=== PATIENT | female | born 1935 | race Caucasian/White ===

== ENCOUNTER 2023-03-22 04:16 | Inpatient (IN) | payer MEDICARE, SELFPAY ==
[2023-03-22 05:33] LABS: Hematocrit 25.7 % (36.0-47.0); Hemoglobin 8.1 g/dL (12.0-16.0); Mean Corpuscular HGB CONC 31.5 g/dL (32.0-36.0); Mean Corpuscular Hemoglobin 32.3 pg (27.0-31.0); Mean Corpuscular Volume 102.4 fl (78.0-98.0); Mean Platelet Volume 9.8 fL (7.4-10.4); Platelet Count 140 10x3/uL (130-400); RBC Distribution Width 17.6 % (11.5-14.5); Red Blood Cell (RBC) Count 2.51 mill/uL (4.20-5.40); White Blood Cell (WBC) Count 1.3 10x3/uL (4.8-10.8)
[2023-03-22 05:49] LABS: Delete Auto Diff?? YES; Manual Diff?? YES
[2023-03-22 05:54] LABS: ALT (SGPT) 15 U/L (8-55); AST (SGOT) 24 U/L (5-34); Albumin 3.3 g/dL (3.4-4.8); Alkaline Phosphatase 103 U/L (40-110); Anion Gap 15 mmol/L (10-20); BUN (Urea Nitrogen) 24 mg/dL (9.8-20.1); Bilirubin, Total 0.6 mg/dL (0.2-1.2); CK (CPK) 91 U/L (29-168); Calc. Creatinine Clearance 0 mL/min (70-130); Carbon Dioxide 21 mmol/L (23-31); Chloride 102 mmol/L (98-107); Estimated GFR 37; Globulin 2.7 g/dL (2.4-3.5); Glucose 82 mg/dL (83-110); Potassium 3.7 mmol/L (3.5-5.1); Sodium 134 mmol/L (136-145)
[2023-03-22 05:58] LABS: Troponin I 0.015 ng/mL (< 0.028)
[2023-03-22 06:21] LABS: Band 30 % (5-11); CellaVision Operator ID lab.abc; Large Platelets 5.9 % (0-5); Lymphocytes 7 % (21-51); Macrocytosis SLIGHT = 6-15 cells HPF (0-5); Monocytes 4 % (0-10); Neutrophil 59 % (42-75); Platelet Adequacy Comment Platelets Normal; Polychromasia SLIGHT = 2-3 cells HPF (0-2); Smudge Cells 7.8 %; Total Cell Count 102
[2023-03-22] MEDS ORDERED: Cefepime 2 GM VIAL ONE (09:50)
[2023-03-22] MEDS ORDERED: Vancomycin 1 GM/200 ML (FROZEN) BAG ONE (09:50)
[2023-03-22] MEDS ORDERED: LevoFLOXacin 750 mg/D5W 150 ml Premix Bag ONE (09:50)
[2023-03-22] MEDS ORDERED: Communication Order-Pharmacy FS SCH (11:51)
[2023-03-22] MEDS ORDERED: Dextrose 5% in Water 1,000 ML IV PRN (11:54)
[2023-03-22] MEDS ORDERED: Glucagon 1 MG/ML KIT IM PRN (11:54)
[2023-03-22] MEDS ORDERED: HumaLOG 300 UNITS/3 ML VIAL SC PRN ×2 (11:54)
[2023-03-22] MEDS ORDERED: Dextrose 50% Abboject 50 ML SYRINGE SLOW IVP PRN (11:54)
[2023-03-22] MEDS ORDERED: D5 1/2 NS w/20 mEq KCL 1,000 ML IV SCH (12:00)
[2023-03-22 13:08] LABS: Magnesium 1.3 mg/dL (1.6-2.6)
[2023-03-22] MEDS ORDERED: Gabapentin 300 MG CAP PO PRN (13:09)
[2023-03-22 14:14] LABS: Bilirubin Negative (Negative); Blood, Urine Negative (Negative); CAUTI Indications for Culture Alt mental st,lethar; Glucose, Urine (Dipstick) Normal (Negative); Ketone, Urine Negative (Negative); Leukocyte 500 Leu/uL (Negative); Nitrite 1+ (Negative); Protein, Urine (Dipstick) 50 mg/dL (Neg-Trace); RBC/HPF 0-3 HPF (0-3); Squamous Epithelial 0-3 HPF (0-3); Urobilinogen Normal mg/dL (Less than 2); WBC/HPF 21-50 HPF (0-3)
[2023-03-22 14:18] LABS: Bacteria/HPF 1+ HPF (None Seen); Clarity Hazy (Clear)
[2023-03-22 14:20] LABS: Urine Culture Reflex Yes Yes
[2023-03-22] MEDS ORDERED: Furosemide 40 MG/4 ML VIAL SLOW IVP SCH (14:45)
[2023-03-22] MEDS ORDERED: Metoprolol Tartrate 25 MG TAB PO SCH (15:00)
[2023-03-22] MEDS: Sucralfate 1 GM TAB PO SCH ×2 (20:14→23:39)
[2023-03-22] MEDS: Dextrose 5 %-0.45 % NaCl 1,000 ML IV SCH (20:14)
[2023-03-22] MEDS: Vancomycin HCl 125 MG Capsule PO SCH (20:14)
[2023-03-22 20:28] VITALS: BMI 36.6
[2023-03-22] MEDS ORDERED: Apixaban 2.5 MG TAB PO SCH (21:00)
[2023-03-22] MEDS ORDERED: Famotidine 20 MG TAB PO SCH (21:00)
[2023-03-22] MEDS: Cefepime 1 GM in Sodium Chloride 0.9% 100 ML IVPB SCH (23:26)
[2023-03-23] MEDS: Vancomycin HCl 125 MG Capsule PO SCH ×5 (00:45→23:11)
[2023-03-23 04:20] LABS: Strep pneumo Urine Ag NEGATIVE (NEGATIVE)
[2023-03-23 04:46] LABS: Hematocrit 18.8 % (36.0-47.0); Hemoglobin 6.1 g/dL (12.0-16.0); Mean Corpuscular HGB CONC 32.4 g/dL (32.0-36.0); Mean Corpuscular Hemoglobin 32.6 pg (27.0-31.0); Mean Corpuscular Volume 100.5 fl (78.0-98.0); Mean Platelet Volume 9.8 fL (7.4-10.4); Platelet Count 133 10x3/uL (130-400); RBC Distribution Width 17.7 % (11.5-14.5); Red Blood Cell (RBC) Count 1.87 mill/uL (4.20-5.40); White Blood Cell (WBC) Count 1.2 10x3/uL (4.8-10.8)
[2023-03-23 05:03] LABS: Delete Auto Diff?? YES; Manual Diff?? YES
[2023-03-23 05:18] LABS: ALT (SGPT) 15 U/L (8-55); AST (SGOT) 28 U/L (5-34); Albumin 2.5 g/dL (3.4-4.8); Alkaline Phosphatase 74 U/L (40-110); Anion Gap 12 mmol/L (10-20); BUN (Urea Nitrogen) 17 mg/dL (9.8-20.1); Bilirubin, Total 0.7 mg/dL (0.2-1.2); Calc. Creatinine Clearance 46 mL/min (70-130); Calcium 7.8 mg/dL (7.8-10.44); Carbon Dioxide 19 mmol/L (23-31); Chloride 102 mmol/L (98-107); Estimated GFR 42; Globulin 2.4 g/dL (2.4-3.5); Glucose 95 mg/dL (83-110); Magnesium 1.2 mg/dL (1.6-2.6); Phosphorus 2.8 mg/dL (2.3-4.7); Potassium 3.2 mmol/L (3.5-5.1); Protein, Total 4.9 g/dL (5.8-8.1); Sodium 130 mmol/L (136-145)
[2023-03-23] MEDS ORDERED: Electrolyte Replacement Protocol 1 EACH FS SCH (06:45)
[2023-03-23] MEDS ORDERED: Potassium Chloride 20 MEQ TAB PO SCH (06:45)
[2023-03-23] MEDS ORDERED: Pantoprazole 40 MG VIAL IVP SCH (06:45)
[2023-03-23] MEDS ORDERED: Magnesium Sulfate In Water 4 GM in Premix Bag 1 BAG IVPB SCH (06:45)
[2023-03-23 06:46] LABS: SARS-CoV-2 NAA Rapid Test DETECTED (NotDetected)
[2023-03-23] MEDS: Pantoprazole 40 MG VIAL IVP SCH (07:29)
[2023-03-23 08:16] LABS: Band 35 % (5-11); CellaVision Operator ID LAB.GE; Hypochromia SLIGHT = 6-15 cells HPF (0-5); Large Platelets 2.3 % (0-5); Lymphocytes 12 % (21-51); Monocytes 13 % (0-10); Neutrophil 40 % (42-75); Platelet Adequacy Comment Platelets Normal; Polychromasia SLIGHT = 2-3 cells HPF (0-2); Total Cell Count 87
[2023-03-23 08:30] LABS: Iron 16 ug/dL (50-170); Iron Binding Capacity, Total 168 mcg/dL (265-497)
[2023-03-23] MEDS ORDERED: Furosemide 40 MG/4 ML VIAL SLOW IVP SCH (09:00)
[2023-03-23] MEDS ORDERED: Vancomycin HCl 750 MG in Sodium Chloride 0.9% 250 ML 250 ML IVPB SCH (09:00)
[2023-03-23] MEDS: Cefepime 1 GM in Sodium Chloride 0.9% 100 ML IVPB SCH ×2 (09:45→20:54)
[2023-03-23] MEDS: Sucralfate 1 GM TAB PO SCH ×4 (09:46→20:54)
[2023-03-23] MEDS: Dextrose 5 %-0.45 % NaCl 1,000 ML IV SCH (12:14)
[2023-03-23 19:40] LABS: Hematocrit 25.5 % (36.0-47.0); Hemoglobin 8.6 g/dL (12.0-16.0)
[2023-03-23] MEDS: Famotidine 20 MG TAB PO SCH (20:54)
[2023-03-24] MEDS ORDERED: Melatonin 3 MG TAB PO PRN (01:27)
[2023-03-24] MEDS: Dextrose 5 %-0.45 % NaCl 1,000 ML IV SCH (01:40)
[2023-03-24 04:40] LABS: #Eosinphils 0.1 thou/uL (0.0-0.7); #Monocytes 0.2 thou/uL (0.11-0.59); #Neutrophils 1.3 thou/uL (1.40-6.50); %Basophils 0.5 % (0.0-1.0); %Eosinophils 5.4 % (0.0-10.0); %Lymphocytes 22.2 % (21.0-51.0); %Monocytes 7.4 % (0.0-10.0); %Neutrophils 63.5 % (42.0-75.0); Hematocrit 25.2 % (36.0-47.0); Hemoglobin 8.4 g/dL (12.0-16.0); Mean Corpuscular HGB CONC 33.3 g/dL (32.0-36.0); Mean Corpuscular Hemoglobin 31.6 pg (27.0-31.0); Mean Platelet Volume 9.5 fL (7.4-10.4); Platelet Count 123 10x3/uL (130-400); RBC Distribution Width 18.5 % (11.5-14.5); Red Blood Cell (RBC) Count 2.66 mill/uL (4.20-5.40)
[2023-03-24 04:41] LABS: Mean Corpuscular Volume 94.7 fl (78.0-98.0)
[2023-03-24 04:42] LABS: Manual Diff?? YES
[2023-03-24] MEDS: Vancomycin HCl 125 MG Capsule PO SCH ×3 (04:44→18:01)
[2023-03-24 05:06] LABS: ALT (SGPT) 17 U/L (8-55); AST (SGOT) 31 U/L (5-34); Albumin 2.6 g/dL (3.4-4.8); Alkaline Phosphatase 78 U/L (40-110); Anion Gap 10 mmol/L (10-20); BUN (Urea Nitrogen) 11 mg/dL (9.8-20.1); Bilirubin, Total 0.6 mg/dL (0.2-1.2); Calc. Creatinine Clearance 63 mL/min (70-130); Calcium 8.1 mg/dL (7.8-10.44); Carbon Dioxide 20 mmol/L (23-31); Chloride 105 mmol/L (98-107); Estimated GFR 62; Globulin 2.5 g/dL (2.4-3.5); Glucose 107 mg/dL (83-110); Potassium 3.4 mmol/L (3.5-5.1); Protein, Total 5.1 g/dL (5.8-8.1); Sodium 132 mmol/L (136-145)
[2023-03-24 05:27] LABS: Anisocytosis SLIGHT = 6-15 cells HPF (0-5); Band 9 % (5-11); Burr Cells SLIGHT = 2-5 cells HPF (0-1); CellaVision Operator ID lab.sh2; Eosinophils 4 % (0-10); Lymphocytes 13 % (21-51); Macrocytosis SLIGHT = 6-15 cells HPF (0-5); Monocytes 3 % (0-10); Neutrophil 71 % (42-75); Ovalocytes SLIGHT = 2-5 cells HPF (0-1); Platelet Adequacy Comment Platelets Decreased; Poikilocytosis SLIGHT = 6-15 cells HPF (0-5); Polychromasia SLIGHT = 2-3 cells HPF (0-2); Tear Drops SLIGHT = 2-5 cells HPF (0-1); Total Cell Count 100
[2023-03-24] MEDS ORDERED: Potassium Chloride 20 MEQ TAB PO SCH (08:00)
[2023-03-24] MEDS ORDERED: Magnesium 2 GM/50 ML(in water) 2 GM in Premix Bag 1 BAG IVPB SCH (08:00)
[2023-03-24] MEDS: Sucralfate 1 GM TAB PO SCH ×5 (08:48→21:04)
[2023-03-24] MEDS: Cefepime 1 GM in Sodium Chloride 0.9% 100 ML IVPB SCH ×2 (08:49→21:01)
[2023-03-24] MEDS: Pantoprazole 40 MG VIAL IVP SCH (08:49)
[2023-03-24] MEDS ORDERED: LevoFLOXacin 750 mg/D5W 750 MG in Premix Bag 1 BAG IVPB SCH (09:00)
[2023-03-24 15:29] VITALS: BP 120/64; TEMP 97.9
[2023-03-24] MEDS: Famotidine 20 MG TAB PO SCH (21:01)
== END 2023-03-24 22:20 | disposition short-term general hospital (02) | DRG 871 ==
LOC: ERS 04:16 → ERHOLD 14:30 → 2NO 17:31
PROVIDERS: ADMIT Family Medicine; ATTEND Hospitalist
PROC: 3E03329 Introduction of Other Anti-infective into Peripheral Vein, Percutaneous Approach (ICD-10-PCS; principal; 2023-03-22)
PROC: 8E0ZXY6 Isolation (ICD-10-PCS; 2023-03-22)
PROC: 30233N1 Transfusion of Nonautologous Red Blood Cells into Peripheral Vein, Percutaneous Approach (ICD-10-PCS; 2023-03-23)
DX: A41.89 Other specified sepsis (principal); G93.41 Metabolic encephalopathy; U07.1 COVID-19; J12.82 Pneumonia due to coronavirus disease 2019; N39.0 Urinary tract infection, site not specified; A04.72 Enterocolitis due to Clostridium difficile, not specified as recurrent; E11.40 Type 2 diabetes mellitus with diabetic neuropathy, unspecified; I10 Essential (primary) hypertension; I48.91 Unspecified atrial fibrillation; E11.649 Type 2 diabetes mellitus with hypoglycemia without coma; E87.6 Hypokalemia; D70.9 Neutropenia, unspecified; E83.42 Hypomagnesemia; D63.8 Anemia in other chronic diseases classified elsewhere; Z98.890 Other specified postprocedural states; Z90.710 Acquired absence of both cervix and uterus; Z88.8 Allergy status to other drugs, medicaments and biological substances
CPT/HCPCS: 36415; 36416; 36430; 51701; 71045; 74177; 80053; 80202; 81001; 82274; 82533; 82550; 82728; 83540; 83550; 83605; 83735; 84100; 84145; 84443; 84484; 85025; 86850; 86900; 86901; 87040; 87081; 87086; 87324; 87449; 87633; 93005; 96361; 96365; 96366; 96368; C9113; J0692; J1956; J3370-JW; J3475; J3490; J7042; P9016

== ENCOUNTER 2023-08-10 09:02 | Emergency (ER) | payer MEDICARE ==
[2023-08-10 09:57] LABS: #Monocytes 0.3 thou/uL (0.11-0.59); #Neutrophils 3.3 thou/uL (1.40-6.50); %Basophils 0.2 % (0.0-1.0); %Monocytes 6.6 % (0.0-10.0); %Neutrophils 81.5 % (42.0-75.0); Hematocrit 30.9 % (36.0-47.0); Hemoglobin 9.9 g/dL (12.0-16.0); Mean Platelet Volume 10.6 fL (7.4-10.4); Platelet Count 120 10x3/uL (130-400); RBC Distribution Width 16.5 % (11.5-14.5); White Blood Cell (WBC) Count 4.1 10x3/uL (4.8-10.8)
[2023-08-10] MEDS ORDERED: Acetaminophen 500 MG TAB ONE (10:19)
[2023-08-10 10:42] LABS: ALT (SGPT) 11 U/L (8-55); AST (SGOT) 18 U/L (5-34); Albumin 4.1 g/dL (3.4-4.8); Alkaline Phosphatase 87 U/L (40-110); Anion Gap 13 mmol/L (10-20); BUN (Urea Nitrogen) 24 mg/dL (9.8-20.1); Bilirubin, Total 1.5 mg/dL (0.2-1.2); Calc. Creatinine Clearance 0 mL/min (70-130); Calcium 9.6 mg/dL (7.8-10.44); Carbon Dioxide 26 mmol/L (23-31); Chloride 103 mmol/L (98-107); Estimated GFR 34; Globulin 2.8 g/dL (2.4-3.5); Glucose 128 mg/dL (83-110); Potassium 4.2 mmol/L (3.5-5.1); Protein, Total 6.9 g/dL (5.8-8.1); Sodium 138 mmol/L (136-145)
[2023-08-10] MEDS ORDERED: oxyCODONE 5 MG TAB PO SCH (11:30)
[2023-08-10 15:27] LABS: Bilirubin Negative (Negative); Blood, Urine Negative (Negative); Glucose, Urine (Dipstick) Negative (Negative); Ketone, Urine Negative (Negative); Leukocyte Trace (Negative); Nitrite Positive (Negative); Protein, Urine (Dipstick) Negative (Neg-Trace); Urobilinogen 0.2 mg/dL (Less than 2)
[2023-08-10 15:35] LABS: Clarity Clear (Clear)
[2023-08-10 16:23] LABS: Bacteria/HPF 1+ HPF (None Seen); CAUTI Indications for Culture Alt mental st,lethar; RBC/HPF 0-3 HPF (0-3); Squamous Epithelial 0-3 HPF (0-3); Trichomonas/HPF None Seen HPF (None Seen); Urine Culture Reflex No No; Yeast-Budding None Seen HPF (None Seen)
[2023-08-10] MEDS ORDERED: LevoFLOXacin 250 MG TAB ONE (16:30)
[2023-08-10] MEDS ORDERED: LevoFLOXacin 500 MG TAB ONE (16:30)
== END 2023-08-10 16:15 | disposition home or self-care (01) ==
LOC: ERS 09:02
DX: M54.50 Low back pain, unspecified (principal); N39.0 Urinary tract infection, site not specified; E86.0 Dehydration; I11.0 Hypertensive heart disease with heart failure; I50.9 Heart failure, unspecified; E11.40 Type 2 diabetes mellitus with diabetic neuropathy, unspecified; Z79.899 Other long term (current) drug therapy
CPT/HCPCS: 51701; 72131; 80053; 81001; 85025; 87077; 87086; 87186; 96360; 96361